=== PATIENT | male | born 1965 | race Hispanic/Latino ===

== ENCOUNTER 2017-04-16 19:39 | Emergency (ER) | payer OTHER ==
[2017-04-16] MEDS ORDERED: Lidocaine 1% w/Epinephrine 1:200K 30 ML VIAL ONE (20:39)
[2017-04-16] MEDS ORDERED: Bacitracin Zinc 1 Packet ONE (21:04)
--- NOTE | 2017-04-16 21:07 | RAD ---
EXAM: LEFT FOREARM TWO VIEWS 04/16/17 HISTORY: Laceration. Cut with metal. COMPARISON: None. FINDINGS: Two views left forearm: Bandage overlies the area of laceration. No radiopaque foreign body. No fracture. No cortical irregu larity or periosteal reaction. IMPRESSION: Laceration which has been covered by a bandage. No radiopaque foreign body. No fracture. POS: [facility]
== END 2017-04-16 21:48 | disposition home or self-care (01) ==
LOC: ERS 19:39
DX: S51.812A Laceration without foreign body of left forearm, initial encounter (principal); E11.9 Type 2 diabetes mellitus without complications; Z79.84 Long term (current) use of oral hypoglycemic drugs; W45.8XXA Other foreign body or object entering through skin, initial encounter; Y92.69 Other specified industrial and construction area as the place of occurrence of the external cause; Y99.0 Civilian activity done for income or pay
CPT/HCPCS: 12002; 99001

== ENCOUNTER 2020-03-06 15:42 | Emergency (ER) | payer OTHER ==
[2020-03-07 11:29] LABS: SARS-CoV-2 MS2 Positive; SARS-CoV-2 N Gene Negative; SARS-CoV-2 S Gene Negative; SARS-CoV-2 by NAA Not Detected (NotDetected); SARS-CoV-2 orf1ab Negative
== END 2020-03-06 16:15 | disposition home or self-care (01) ==
LOC: ERS 15:42
DX: Z20.828 Contact with and (suspected) exposure to other viral communicable diseases (principal); E11.9 Type 2 diabetes mellitus without complications
CPT/HCPCS: 87635; U0003